=== PATIENT | female | born 1975 | race Caucasian/White ===

== ENCOUNTER 2020-12-27 16:12 | Inpatient (IN) | payer BC, SELFPAY ==
[2020-12-27] MEDS ORDERED: Morphine 4 MG/ML VIAL ONE ×2 (17:31→19:57)
[2020-12-27] MEDS ORDERED: Ondansetron PF 4 MG/2 ML Vial ONE (17:31)
[2020-12-27] MEDS ORDERED: Gabapentin 100 MG CAP PO SCH (17:45)
[2020-12-27 18:10] LABS: #Basophils 0.1 10x3/uL (0.0-0.2); #Eosinphils 0.2 10x3/uL (0.0-0.5); #Monocytes 1.1 10x3/uL (0.0-1.1); #Neutrophils 14.9 10x3/uL (1.5-8.4); %Basophils 0.3 % (0.0-2.0); %Eosinophils 1.2 % (0.0-6.0); %Lymphocytes 9.5 % (18.0-47.0); %Neutrophils 82.3 % (40.0-75.0); Hemoglobin 11.8 g/dL (12.0-15.5); Mean Corpuscular HGB CONC 33.2 g/dL (32.0-36.0); Mean Corpuscular Hemoglobin 30.3 pg (27.0-33.0); Mean Platelet Volume 10.8 fl (7.4-10.4); Platelet Count 202 10x3/uL (150-450); RBC Distribution Width 14.5 % (11.5-14.5); White Blood Cell (WBC) Count 18.1 10x3/uL (3.5-10.5)
[2020-12-27 18:21] LABS: ALT (SGPT) 24 U/L (8-55); AST (SGOT) 17 U/L (5-34); Albumin 3.4 g/dL (3.5-5.0); Alkaline Phosphatase 111 U/L (40-110); Anion Gap 13 mmol/L (10-20); BUN (Urea Nitrogen) 8 mg/dL (7.0-18.7); Bilirubin, Total 0.5 mg/dL (0.2-1.2); Calc. Creatinine Clearance 0 mL/min (70-130); Calcium 8.8 mg/dL (7.8-10.44); Carbon Dioxide 23 mmol/L (22-29); Chloride 101 mmol/L (98-107); Glucose 85 mg/dL (70-105); Potassium 3.9 mmol/L (3.5-5.1); Protein, Total 6.4 g/dL (6.0-8.3); Sodium 133 mmol/L (136-145)
[2020-12-27] MEDS ORDERED: Senokot S 8.6-50 MG TAB PO PRN (20:41)
[2020-12-27] MEDS ORDERED: Guaifenesin DM 100-10/5 ML UDCUP PO PRN (20:41)
[2020-12-27] MEDS ORDERED: Zolpidem Tartrate 5 MG TAB PO PRN (20:41)
[2020-12-27] MEDS ORDERED: Calcium Carbonate 500 MG ChewTAB PO PRN (20:41)
[2020-12-27] MEDS ORDERED: HYDROcodone/Acetaminophen 5/325 mg Tablet PO PRN ×2 (20:41→23:19)
[2020-12-27 21:21] LABS: Bilirubin Neg (Negative); Blood, Urine Negative (Negative); Clarity Clear (Clear); Glucose, Urine (Dipstick) Normal (Negative); Ketone, Urine Negative (Negative); Leukocyte Negative (Negative); Nitrite Negative (Negative); Protein, Urine (Dipstick) 15 mg/dl (Neg-Trace); Specific Gravity, Urine 1.005 (1.002-1.036); Urobilinogen Normal mg/dL (Less than 2)
[2020-12-27] MEDS ORDERED: Piperacillin/Tazobactam 3.375 GM VIAL ONE (21:33)
[2020-12-27] MEDS ORDERED: Ketorolac Tromethamine 30 MG/ML VIAL IVP SCH (22:00)
[2020-12-27] MEDS ORDERED: Morphine 4 MG/ML VIAL SLOW IVP PRN (22:07)
[2020-12-27] MEDS: Ondansetron PF 4 MG/2 ML Vial IVP PRN (22:24)
[2020-12-27 22:56] VITALS: BMI 32.3
[2020-12-27] MEDS: Lactated Ringer's 1,000 ML IV SCH (23:49)
[2020-12-28] MEDS: Vancomycin HCl 1 GM in Sodium Chloride 0.9% 250 ML 250 ML IVPB SCH ×3 (00:49→16:53)
[2020-12-28] MEDS: Promethazine HCl 12.5 MG in Sodium Chloride 0.9% 50 ML IVPB SCH (00:49)
[2020-12-28] MEDS: Ondansetron PF 4 MG/2 ML Vial IVP PRN ×3 (04:59→22:25)
[2020-12-28 05:12] LABS: ALT (SGPT) 19 U/L (8-55); AST (SGOT) 17 U/L (5-34); Albumin 2.9 g/dL (3.5-5.0); Alkaline Phosphatase 151 U/L (40-110); Anion Gap 15 mmol/L (10-20); BUN (Urea Nitrogen) 7 mg/dL (7.0-18.7); Bilirubin, Total 0.4 mg/dL (0.2-1.2); Calc. Creatinine Clearance 143 mL/min (70-130); Calcium 8.2 mg/dL (7.8-10.44); Carbon Dioxide 17 mmol/L (22-29); Chloride 109 mmol/L (98-107); Globulin 2.8 g/dL (2.4-3.5); Glucose 88 mg/dL (70-105); Potassium 4.5 mmol/L (3.5-5.1); Protein, Total 5.7 g/dL (6.0-8.3); Sodium 136 mmol/L (136-145)
[2020-12-28] MEDS ORDERED: HYDROmorphone 0.5 MG/0.5 ML SYRINGE SLOW IVP PRN ×2 (06:20→07:40)
[2020-12-28] MEDS ORDERED: Cefepime 2 GM VIAL ONE (06:23)
[2020-12-28 06:27] LABS: #Eosinphils 0.2 10x3/uL (0.0-0.5); #Monocytes 0.8 10x3/uL (0.0-1.1); #Neutrophils 9.6 10x3/uL (1.5-8.4); %Basophils 0.2 % (0.0-2.0); %Eosinophils 1.6 % (0.0-6.0); %Lymphocytes 13.3 % (18.0-47.0); %Monocytes 6.1 % (0.0-10.0); %Neutrophils 78.3 % (40.0-75.0); Hemoglobin 11.3 g/dL (12.0-15.5); Mean Corpuscular HGB CONC 32.8 g/dL (32.0-36.0); Mean Corpuscular Hemoglobin 30.3 pg (27.0-33.0); Mean Corpuscular Volume 92.5 fl (81.6-98.3); Mean Platelet Volume 9.7 fl (7.4-10.4); Platelet Count 207 10x3/uL (150-450); RBC Distribution Width 14.5 % (11.5-14.5); Red Blood Cell (RBC) Count 3.73 10x6/uL (3.90-5.03); White Blood Cell (WBC) Count 12.3 10x3/uL (3.5-10.5)
[2020-12-28] MEDS: Cefepime 2 GM in Sodium Chloride 0.9% 100 ML IVPB SCH ×2 (06:35→18:30)
[2020-12-28 06:41] LABS: Bilirubin Neg (Negative); Blood, Urine Negative (Negative); Clarity Clear (Clear); Glucose, Urine (Dipstick) Normal (Negative); Ketone, Urine Negative (Negative); Leukocyte Negative (Negative); Nitrite Negative (Negative); Protein, Urine (Dipstick) 30 mg/dl (Neg-Trace); Urobilinogen Normal mg/dL (Less than 2); pH, Urine 6.5 (5.0-9.0)
[2020-12-28 06:42] LABS: Pregnancy Test - Urine (BHCG) Negative (Negative); Pregu Control Background? CLEAR/WHITE (CLR/WHITE); Pregu Control Bar Appear? YES (CONTROL BAR)
[2020-12-28 06:42] LABS: SARS-CoV-2 NAA Rapid Test Not Detected (NotDetected)
[2020-12-28] MEDS: Ketorolac Tromethamine 30 MG/ML VIAL IVP SCH ×2 (06:46→13:07)
[2020-12-28 07:47] LABS: Bacteria/HPF Rare-Few HPF (None Seen); RBC/HPF 0-3 HPF (0-3); Squamous Epithelial 0-3 HPF (0-3); WBC/HPF 0-3 HPF (0-3)
[2020-12-28] MEDS: ACYCLOVIR SODIUM IVPB SCH ×2 (09:47→16:53)
[2020-12-28] MEDS: SODIUM CHLORIDE IVPB SCH ×2 (09:47→16:53)
[2020-12-28] MEDS: Lactated Ringer's 1,000 ML IV SCH ×2 (09:47→16:54)
[2020-12-28] MEDS: ADMIXTURE FEE IVPB SCH ×2 (09:47→16:53)
[2020-12-28] MEDS: Enoxaparin Sodium 40 MG/0.4 ML SYRINGE SC SCH (09:48)
[2020-12-28] MEDS: Famotidine 20 MG TAB PO SCH ×2 (09:48→22:01)
[2020-12-28] MEDS: Gabapentin 100 MG CAP PO SCH ×3 (09:48→22:02)
[2020-12-28] MEDS: Acetaminophen 325 MG TAB PO PRN ×2 (09:49→16:53)
[2020-12-28] MEDS ORDERED: Ketorolac Tromethamine 30 MG/ML VIAL IVP SCH (20:45)
[2020-12-28] MEDS: Metoprolol Tartrate 25 MG TAB PO SCH (22:02)
[2020-12-29 00:32] LABS: Vancomycin, Trough 15.3 ug/mL
[2020-12-29] MEDS: SODIUM CHLORIDE IVPB SCH ×3 (01:06→15:57)
[2020-12-29] MEDS: ACYCLOVIR SODIUM IVPB SCH ×3 (01:06→15:57)
[2020-12-29] MEDS: ADMIXTURE FEE IVPB SCH ×3 (01:06→15:57)
[2020-12-29] MEDS: Vancomycin HCl 1 GM in Sodium Chloride 0.9% 250 ML 250 ML IVPB SCH ×3 (02:53→20:03)
[2020-12-29] MEDS: Lactated Ringer's 1,000 ML IV SCH ×2 (05:05→06:09)
[2020-12-29 06:27] LABS: #Basophils 0.1 10x3/uL (0.0-0.2); #Eosinphils 0.2 10x3/uL (0.0-0.5); #Monocytes 0.7 10x3/uL (0.0-1.1); #Neutrophils 6.9 10x3/uL (1.5-8.4); %Basophils 0.5 % (0.0-2.0); %Eosinophils 2.3 % (0.0-6.0); %Lymphocytes 15.6 % (18.0-47.0); %Monocytes 7.8 % (0.0-10.0); %Neutrophils 73.3 % (40.0-75.0); Hemoglobin 11.4 g/dL (12.0-15.5); Mean Corpuscular HGB CONC 32.9 g/dL (32.0-36.0); Mean Corpuscular Hemoglobin 29.9 pg (27.0-33.0); Mean Corpuscular Volume 90.8 fl (81.6-98.3); Mean Platelet Volume 9.2 fl (7.4-10.4); Platelet Count 222 10x3/uL (150-450); RBC Distribution Width 14.2 % (11.5-14.5); Red Blood Cell (RBC) Count 3.81 10x6/uL (3.90-5.03); White Blood Cell (WBC) Count 9.5 10x3/uL (3.5-10.5)
[2020-12-29] MEDS: Cefepime 2 GM in Sodium Chloride 0.9% 100 ML IVPB SCH (06:36)
[2020-12-29 06:48] LABS: ALT (SGPT) 29 U/L (8-55); AST (SGOT) 30 U/L (5-34); Albumin 2.9 g/dL (3.5-5.0); Alkaline Phosphatase 117 U/L (40-110); Anion Gap 14 mmol/L (10-20); BUN (Urea Nitrogen) 10 mg/dL (7.0-18.7); Bilirubin, Total 0.4 mg/dL (0.2-1.2); Calc. Creatinine Clearance 112 mL/min (70-130); Calcium 8.4 mg/dL (7.8-10.44); Carbon Dioxide 19 mmol/L (22-29); Chloride 109 mmol/L (98-107); Globulin 2.9 g/dL (2.4-3.5); Glucose 91 mg/dL (70-105); Protein, Total 5.8 g/dL (6.0-8.3); Sodium 138 mmol/L (136-145)
[2020-12-29] MEDS ORDERED: traMADol HCl 50 MG TAB PO PRN (09:40)
[2020-12-29] MEDS: Gabapentin 100 MG CAP PO SCH ×3 (10:09→20:47)
[2020-12-29] MEDS: Metoprolol Tartrate 25 MG TAB PO SCH ×2 (10:09→20:49)
[2020-12-29] MEDS: Famotidine 20 MG TAB PO SCH ×2 (10:09→20:49)
[2020-12-29] MEDS: Enoxaparin Sodium 40 MG/0.4 ML SYRINGE SC SCH (10:10)
[2020-12-29] MEDS: Ondansetron PF 4 MG/2 ML Vial IVP PRN ×4 (10:18→22:50)
[2020-12-29] MEDS: Morphine 4 MG/ML VIAL SLOW IVP PRN ×2 (14:00→22:50)
[2020-12-29] MEDS: Acetaminophen 325 MG TAB PO PRN (15:57)
[2020-12-29] MEDS ORDERED: Milk Of Magnesia 30 ML UDCUP PO PRN (16:10)
[2020-12-29] MEDS ORDERED: Magnesium Citrate 300 ML BOT PO PRN (16:10)
[2020-12-29] MEDS: Ketorolac Tromethamine 30 MG/ML VIAL IVP SCH (16:15)
[2020-12-29] MEDS: Polyethylene Glycol 3350 17 GM Packet PO SCH (20:48)
[2020-12-29] MEDS: Senokot S 8.6-50 MG TAB PO SCH (20:49)
[2020-12-29] MEDS ORDERED: hydrALAZINE 20 MG/ML VIAL SLOW IVP PRN (21:04)
[2020-12-29] MEDS: Promethazine HCl 12.5 MG in Sodium Chloride 0.9% 50 ML IVPB SCH (23:31)
[2020-12-30] MEDS: Ketorolac Tromethamine 30 MG/ML VIAL IVP SCH ×3 (01:20→09:44)
[2020-12-30] MEDS: Cefepime 2 GM in Sodium Chloride 0.9% 100 ML IVPB SCH ×3 (01:25→19:32)
[2020-12-30] MEDS: ACYCLOVIR SODIUM IVPB SCH ×3 (03:12→16:32)
[2020-12-30] MEDS: SODIUM CHLORIDE IVPB SCH ×3 (03:12→16:32)
[2020-12-30] MEDS: ADMIXTURE FEE IVPB SCH ×3 (03:12→16:32)
[2020-12-30 04:21] LABS: #Basophils 0.1 10x3/uL (0.0-0.2); #Eosinphils 0.3 10x3/uL (0.0-0.5); #Monocytes 0.6 10x3/uL (0.0-1.1); #Neutrophils 5.5 10x3/uL (1.5-8.4); %Basophils 0.6 % (0.0-2.0); %Eosinophils 3.8 % (0.0-6.0); %Lymphocytes 18.5 % (18.0-47.0); %Monocytes 7.9 % (0.0-10.0); %Neutrophils 68.8 % (40.0-75.0); Hemoglobin 11.3 g/dL (12.0-15.5); Mean Corpuscular Hemoglobin 29.8 pg (27.0-33.0); Mean Corpuscular Volume 90.2 fl (81.6-98.3); Mean Platelet Volume 9.2 fl (7.4-10.4); Platelet Count 247 10x3/uL (150-450); RBC Distribution Width 13.7 % (11.5-14.5); Red Blood Cell (RBC) Count 3.79 10x6/uL (3.90-5.03)
[2020-12-30] MEDS: Vancomycin HCl 1 GM in Sodium Chloride 0.9% 250 ML 250 ML IVPB SCH ×2 (04:57→12:40)
[2020-12-30] MEDS: Lactated Ringer's 1,000 ML IV SCH ×2 (08:43→13:16)
[2020-12-30] MEDS: Gabapentin 100 MG CAP PO SCH ×4 (09:46→21:50)
[2020-12-30] MEDS: Metoprolol Tartrate 25 MG TAB PO SCH ×2 (09:47→21:50)
[2020-12-30] MEDS: Promethazine HCl 12.5 MG in Sodium Chloride 0.9% 50 ML IVPB PRN ×2 (09:47→21:51)
[2020-12-30] MEDS: Famotidine 20 MG TAB PO SCH ×2 (10:13→21:51)
[2020-12-30] MEDS: Senokot S 8.6-50 MG TAB PO SCH ×2 (10:13→21:50)
[2020-12-30] MEDS: Polyethylene Glycol 3350 17 GM Packet PO SCH ×2 (10:13→21:50)
[2020-12-30] MEDS: SUMAtriptan Succinate 6 MG/0.5 ML VIAL SC PRN (10:19)
[2020-12-30] MEDS: Morphine 4 MG/ML VIAL SLOW IVP PRN ×2 (11:55→17:31)
[2020-12-30] MEDS ORDERED: PROPOFOL 20 ML ONE (13:16)
[2020-12-30] MEDS ORDERED: Ondansetron PF 4 MG/2 ML Vial ONE (13:17)
[2020-12-30] MEDS ORDERED: Dexamethasone 4 mg/ml Vial ONE ×2 (13:17→14:20)
[2020-12-30] MEDS ORDERED: Bupivacaine PF 0.5% 30 ML VIAL ONE (13:29)
[2020-12-30] MEDS ORDERED: Fentanyl 100 MCG/2 ML VIAL ONE ×2 (13:42→15:29)
[2020-12-30] MEDS ORDERED: Dexmedetomidine 200 MCG/2 ML VIAL ONE (14:09)
[2020-12-30] MEDS ORDERED: traMADol HCl 50 MG TAB PO PRN (15:52)
[2020-12-30 16:29] LABS: Vancomycin, Trough 50.1 ug/mL
[2020-12-30] MEDS ORDERED: Gabapentin 100 MG CAP PO SCH (17:15)
[2020-12-30] MEDS: Ondansetron PF 4 MG/2 ML Vial IVP PRN (17:40)
[2020-12-30] MEDS: Ketorolac Tromethamine 30 MG/ML VIAL IVP PRN (18:24)
[2020-12-30] MEDS: oxyCODONE 5 MG TAB PO PRN (21:52)
[2020-12-31] MEDS: oxyCODONE 5 MG TAB PO PRN ×2 (05:28→23:26)
[2020-12-31 05:36] LABS: #Monocytes 0.6 10x3/uL (0.0-1.1); #Neutrophils 7.1 10x3/uL (1.5-8.4); %Basophils 0.2 % (0.0-2.0); %Eosinophils 0.3 % (0.0-6.0); %Lymphocytes 14.2 % (18.0-47.0); %Monocytes 6.4 % (0.0-10.0); %Neutrophils 78.2 % (40.0-75.0); Mean Corpuscular HGB CONC 33.1 g/dL (32.0-36.0); Mean Corpuscular Hemoglobin 29.5 pg (27.0-33.0); Mean Platelet Volume 9.1 fl (7.4-10.4); Platelet Count 291 10x3/uL (150-450); RBC Distribution Width 13.2 % (11.5-14.5); Red Blood Cell (RBC) Count 3.73 10x6/uL (3.90-5.03); Vancomycin, Random 9.1 ug/mL (See Comment)
[2020-12-31] MEDS ORDERED: Vancomycin HCl 1 GM in Sodium Chloride 0.9% 250 ML 250 ML IVPB SCH (06:30)
[2020-12-31] MEDS: Cefepime 2 GM in Sodium Chloride 0.9% 100 ML IVPB SCH (06:37)
[2020-12-31] MEDS: Ondansetron PF 4 MG/2 ML Vial IVP PRN ×2 (08:30→20:02)
[2020-12-31] MEDS: Morphine 4 MG/ML VIAL SLOW IVP PRN ×3 (08:30→20:00)
[2020-12-31] MEDS: Metoprolol Tartrate 25 MG TAB PO SCH ×2 (11:32→21:09)
[2020-12-31] MEDS: Gabapentin 100 MG CAP PO SCH ×3 (11:34→21:56)
[2020-12-31] MEDS: Famotidine 20 MG TAB PO SCH ×2 (11:35→21:09)
[2020-12-31] MEDS: Polyethylene Glycol 3350 17 GM Packet PO SCH (11:38)
[2020-12-31] MEDS: Promethazine HCl 12.5 MG in Sodium Chloride 0.9% 50 ML IVPB PRN ×2 (12:00→19:00)
[2020-12-31] MEDS: Senokot S 8.6-50 MG TAB PO SCH ×2 (21:11→21:56)
[2020-12-31] MEDS: Ketorolac Tromethamine 30 MG/ML VIAL IVP PRN (21:21)
[2020-12-31] MEDS: Clindamycin/D5W 900 MG in Premix Bag 1 BAG IVPB SCH (23:28)
[2021-01-01] MEDS: Polyethylene Glycol 3350 17 GM Packet PO SCH ×3 (00:32→21:40)
[2021-01-01] MEDS: SUMAtriptan Succinate 6 MG/0.5 ML VIAL SC PRN (04:23)
[2021-01-01 04:42] LABS: #Basophils 0.1 10x3/uL (0.0-0.2); #Eosinphils 0.3 10x3/uL (0.0-0.5); #Monocytes 0.6 10x3/uL (0.0-1.1); #Neutrophils 3.9 10x3/uL (1.5-8.4); %Basophils 0.8 % (0.0-2.0); %Eosinophils 4.2 % (0.0-6.0); %Lymphocytes 31.3 % (18.0-47.0); %Monocytes 8.6 % (0.0-10.0); %Neutrophils 54.5 % (40.0-75.0); Hemoglobin 10.5 g/dL (12.0-15.5); Mean Corpuscular HGB CONC 32.3 g/dL (32.0-36.0); Mean Corpuscular Hemoglobin 29.9 pg (27.0-33.0); Mean Corpuscular Volume 92.6 fl (81.6-98.3); Platelet Count 277 10x3/uL (150-450); Red Blood Cell (RBC) Count 3.51 10x6/uL (3.90-5.03); White Blood Cell (WBC) Count 7.1 10x3/uL (3.5-10.5)
[2021-01-01 04:45] LABS: Anion Gap 14 mmol/L (10-20); BUN (Urea Nitrogen) 12 mg/dL (7.0-18.7); Calc. Creatinine Clearance 113 mL/min (70-130); Calcium 8.2 mg/dL (7.8-10.44); Carbon Dioxide 25 mmol/L (22-29); Chloride 107 mmol/L (98-107); Glucose 88 mg/dL (70-105); Potassium 4.2 mmol/L (3.5-5.1); Sodium 142 mmol/L (136-145)
[2021-01-01] MEDS: Clindamycin/D5W 900 MG in Premix Bag 1 BAG IVPB SCH (05:47)
[2021-01-01] MEDS: Gabapentin 100 MG CAP PO SCH ×3 (09:49→21:38)
[2021-01-01] MEDS: Famotidine 20 MG TAB PO SCH ×2 (09:49→21:39)
[2021-01-01] MEDS: Metoprolol Tartrate 25 MG TAB PO SCH ×2 (09:50→21:38)
[2021-01-01] MEDS: Clindamycin 150 MG CAP PO SCH ×2 (12:10→18:16)
[2021-01-01] MEDS: oxyCODONE 5 MG TAB PO PRN ×2 (12:10→21:40)
[2021-01-01] MEDS: Senokot S 8.6-50 MG TAB PO SCH ×2 (12:11→21:38)
[2021-01-01] MEDS: Morphine 4 MG/ML VIAL SLOW IVP PRN (14:39)
[2021-01-01] MEDS: Ondansetron PF 4 MG/2 ML Vial IVP PRN (14:41)
[2021-01-01] MEDS: Promethazine HCl 12.5 MG in Sodium Chloride 0.9% 50 ML IVPB PRN (21:37)
[2021-01-02] MEDS: Clindamycin 150 MG CAP PO SCH ×4 (00:22→18:19)
[2021-01-02] MEDS: Ondansetron PF 4 MG/2 ML Vial IVP PRN (06:34)
[2021-01-02] MEDS: Morphine 4 MG/ML VIAL SLOW IVP PRN (06:34)
[2021-01-02] MEDS: Metoprolol Tartrate 25 MG TAB PO SCH ×2 (10:50→20:46)
[2021-01-02] MEDS: Gabapentin 100 MG CAP PO SCH ×3 (10:50→20:45)
[2021-01-02] MEDS: Famotidine 20 MG TAB PO SCH ×2 (10:50→20:45)
[2021-01-02] MEDS: Polyethylene Glycol 3350 17 GM Packet PO SCH ×2 (11:08→21:29)
[2021-01-02] MEDS: Senokot S 8.6-50 MG TAB PO SCH ×2 (11:08→21:29)
[2021-01-02] MEDS: oxyCODONE 5 MG TAB PO PRN ×2 (14:42→20:44)
[2021-01-02] MEDS: Promethazine 25 MG TAB PO PRN (22:30)
[2021-01-03] MEDS: Clindamycin 150 MG CAP PO SCH ×4 (00:43→18:15)
[2021-01-03] MEDS: Ketorolac Tromethamine 30 MG/ML VIAL IVP PRN ×2 (00:56→15:55)
[2021-01-03 05:43] LABS: #Basophils 0.1 10x3/uL (0.0-0.2); #Eosinphils 0.4 10x3/uL (0.0-0.5); #Monocytes 0.5 10x3/uL (0.0-1.1); #Neutrophils 4.2 10x3/uL (1.5-8.4); %Basophils 0.8 % (0.0-2.0); %Eosinophils 5.2 % (0.0-6.0); %Lymphocytes 30.6 % (18.0-47.0); %Monocytes 6.4 % (0.0-10.0); %Neutrophils 56.2 % (40.0-75.0); Hemoglobin 11.1 g/dL (12.0-15.5); Mean Corpuscular HGB CONC 32.4 g/dL (32.0-36.0); Mean Corpuscular Volume 92.7 fl (81.6-98.3); Platelet Count 350 10x3/uL (150-450); RBC Distribution Width 13.6 % (11.5-14.5); White Blood Cell (WBC) Count 7.5 10x3/uL (3.5-10.5)
[2021-01-03 06:03] LABS: ALT (SGPT) 24 U/L (8-55); AST (SGOT) 17 U/L (5-34); Albumin 3.1 g/dL (3.5-5.0); Alkaline Phosphatase 81 U/L (40-110); Anion Gap 13 mmol/L (10-20); BUN (Urea Nitrogen) 13 mg/dL (7.0-18.7); Bilirubin, Total 0.2 mg/dL (0.2-1.2); Calc. Creatinine Clearance 124 mL/min (70-130); Calcium 8.9 mg/dL (7.8-10.44); Carbon Dioxide 24 mmol/L (22-29); Chloride 106 mmol/L (98-107); Globulin 2.9 g/dL (2.4-3.5); Glucose 85 mg/dL (70-105); Magnesium 1.9 mg/dL (1.6-2.6); Phosphorus 4.2 mg/dL (2.3-4.7); Potassium 4.4 mmol/L (3.5-5.1); Sodium 139 mmol/L (136-145)
[2021-01-03] MEDS: Metoprolol Tartrate 25 MG TAB PO SCH ×2 (09:46→21:09)
[2021-01-03] MEDS: Famotidine 20 MG TAB PO SCH ×2 (09:46→21:09)
[2021-01-03] MEDS: Gabapentin 100 MG CAP PO SCH ×3 (09:47→21:09)
[2021-01-03] MEDS: oxyCODONE 5 MG TAB PO PRN ×2 (10:23→21:11)
[2021-01-03] MEDS: Polyethylene Glycol 3350 17 GM Packet PO SCH ×2 (12:12→22:07)
[2021-01-03] MEDS: Senokot S 8.6-50 MG TAB PO SCH ×2 (12:12→22:07)
[2021-01-03] MEDS: Ondansetron PF 4 MG/2 ML Vial IVP PRN (12:24)
[2021-01-03] MEDS: Promethazine 25 MG TAB PO PRN (21:09)
[2021-01-04] MEDS: Clindamycin 150 MG CAP PO SCH ×3 (00:09→12:13)
[2021-01-04] MEDS: Ketorolac Tromethamine 30 MG/ML VIAL IVP PRN (00:26)
[2021-01-04 04:44] LABS: ALT (SGPT) 24 U/L (8-55); AST (SGOT) 16 U/L (5-34); Albumin 3.3 g/dL (3.5-5.0); Alkaline Phosphatase 82 U/L (40-110); Anion Gap 16 mmol/L (10-20); BUN (Urea Nitrogen) 19 mg/dL (7.0-18.7); Bilirubin, Total 0.3 mg/dL (0.2-1.2); Calc. Creatinine Clearance 107 mL/min (70-130); Calcium 9.2 mg/dL (7.8-10.44); Carbon Dioxide 24 mmol/L (22-29); Chloride 102 mmol/L (98-107); Globulin 2.9 g/dL (2.4-3.5); Glucose 95 mg/dL (70-105); Magnesium 1.9 mg/dL (1.6-2.6); Phosphorus 4.9 mg/dL (2.3-4.7); Potassium 4.4 mmol/L (3.5-5.1); Protein, Total 6.2 g/dL (6.0-8.3); Sodium 138 mmol/L (136-145)
[2021-01-04 04:47] LABS: #Basophils 0.1 10x3/uL (0.0-0.2); #Eosinphils 0.5 10x3/uL (0.0-0.5); #Monocytes 0.4 10x3/uL (0.0-1.1); #Neutrophils 4.7 10x3/uL (1.5-8.4); %Basophils 0.6 % (0.0-2.0); %Lymphocytes 29.4 % (18.0-47.0); %Monocytes 4.8 % (0.0-10.0); %Neutrophils 58.6 % (40.0-75.0); Hemoglobin 11.5 g/dL (12.0-15.5); Mean Corpuscular HGB CONC 33.3 g/dL (32.0-36.0); Mean Corpuscular Volume 90.1 fl (81.6-98.3); Mean Platelet Volume 9.2 fl (7.4-10.4); Platelet Count 372 10x3/uL (150-450); RBC Distribution Width 13.7 % (11.5-14.5); Red Blood Cell (RBC) Count 3.83 10x6/uL (3.90-5.03)
[2021-01-04] MEDS: Morphine 4 MG/ML VIAL SLOW IVP PRN (05:39)
[2021-01-04] MEDS: Ondansetron PF 4 MG/2 ML Vial IVP PRN (05:39)
[2021-01-04 06:23] VITALS: BP 140/82; TEMP 98
[2021-01-04] MEDS: Gabapentin 100 MG CAP PO SCH ×2 (10:29→17:00)
[2021-01-04] MEDS: Famotidine 20 MG TAB PO SCH (10:31)
[2021-01-04] MEDS: Polyethylene Glycol 3350 17 GM Packet PO SCH (10:31)
[2021-01-04] MEDS: Senokot S 8.6-50 MG TAB PO SCH (10:31)
[2021-01-04] MEDS: Metoprolol Tartrate 25 MG TAB PO SCH (10:31)
[2021-01-04] MEDS: oxyCODONE 5 MG TAB PO PRN (10:39)
== END 2021-01-04 17:58 | disposition home or self-care (01) | DRG 872 ==
LOC: CSHERS 16:12 → CSHTELE 16:13
PROVIDERS: ADMIT Student in an Organized Health Care Education/Training Program; ATTEND Family Medicine
PROC: 0X940ZZ Drainage of Right Axilla, Open Approach (ICD-10-PCS; principal; 2020-12-30)
DX: A41.9 Sepsis, unspecified organism (principal); L03.313 Cellulitis of chest wall; L02.411 Cutaneous abscess of right axilla; L03.111 Cellulitis of right axilla; D84.821 Immunodeficiency due to drugs; B02.9 Zoster without complications; Z20.822 Contact with and (suspected) exposure to COVID-19; L40.50 Arthropathic psoriasis, unspecified; I10 Essential (primary) hypertension; F17.210 Nicotine dependence, cigarettes, uncomplicated; K59.03 Drug induced constipation; T40.2X5A Adverse effect of other opioids, initial encounter; T38.0X5A Adverse effect of glucocorticoids and synthetic analogues, initial encounter; M45.9 Ankylosing spondylitis of unspecified sites in spine; Z88.6 Allergy status to analgesic agent; Z88.1 Allergy status to other antibiotic agents; Z90.49 Acquired absence of other specified parts of digestive tract
CPT/HCPCS: 36415; 70450; 71045; 71260; 80048; 80053; 80202; 81001; 81003; 81025; 82565; 83605; 83735; 84100; 84145; 84520; 85025; 87040; 87070; 87077; 87186; 87205; 96374; 96375; 96376; J0133; J0690; J0692; J1100; J1650; J1885; J2270; J2405; J2543; J2550; J2704; J3010; J3030; J3370; J3490; J7050; J7120; Q0169; S0020; U0002